=== PATIENT | female | born 1960 | race Caucasian/White ===

== ENCOUNTER → 2020-12-24 15:06 | Outpatient (CLI) | payer OTHER, SELFPAY ==
--- NOTE | 2020-12-24 | DI.MG.S_ITS ---
BILATERAL DIGITAL SCREENING MAMMOGRAM 3D/2D WITH CAD: 12/24/2020 CLINICAL: Routine screening. Family history of breast cancer. Comparison is made to exams dated: 06/14/2017 mammogram, 01/28/2016 mammogram, and 01/22/2015 mammogram - outside location. The tissue of both breasts is predominantly fatty. Current study was also evaluated with a Computer Aided Detection (CAD) system. No significant masses, calcifications, or other findings are seen in either breast. There has been no significant interval change. IMPRESSION: NEGATIVE There is no mammographic evidence of malignancy. A 1 year screening mammogram is recommended. This exam was interpreted at Station ID: [id number]. NOTE: For mammograms, a report in lay terms will be sent to the patient. Approximately 15% of breast malignancies will not be visualized mammographically. In the management of a palpable breast mass, a negative mammogram must not discourage biopsy of a clinically suspicious lesion. Electronically Signed By: Amando Acevedo acr/penrad:12/24/2020 16:22:13 letter sent: Normal Exam ACR BI-RADS Category 1: Negative [id number]
== END ==
PROVIDERS: Referring Provider Family Medicine; Visit Provider Family Medicine
DX: Z12.31 Encounter for screening mammogram for malignant neoplasm of breast (principal); Z80.3 Family history of malignant neoplasm of breast; Z78.0 Asymptomatic menopausal state; Z82.62 Family history of osteoporosis; Z90.722 Acquired absence of ovaries, bilateral
CPT/HCPCS: 77063; 77067; 77080

== ENCOUNTER → 2020-12-30 13:12 | Outpatient (CLI) | payer OTHER, SELFPAY ==
[2020-12-30 13:45] LABS: COVID19 -Nasal RAPID Negative (Negative)
== END ==
PROVIDERS: Visit Provider Surgery
DX: Z20.822 Contact with and (suspected) exposure to COVID-19 (principal); Z01.812 Encounter for preprocedural laboratory examination
CPT/HCPCS: 87635; C9803

== ENCOUNTER 2020-12-31 12:21 | Observation (INO) | payer OTHER, SELFPAY ==
[2020-12-30 13:26] VITALS: BMI 28.7
[2020-12-31] VITALS (18 sets, daily range): BP systolic 103–139; BP diastolic 58–85; PULSE 81–104; RESP 12–19; TEMP 36.2–37.3; O2SAT 93–99; BMI 27.9; BMI 28.3
--- NOTE | 2020-12-31 12:46 | PM.PREOP ---
Pre-operative Note Interval Note History & Physical reviewed/Exam performed by Physician: Yes Changes to H&P: No
[2020-12-31] MEDS: LACTATED RINGERS 1,000 ML 42 ML IV ×2 (12:52→16:11)
[2020-12-31] MEDS: CLINDAMYCIN 900 MG/50 ML PIGGYBACK 50 MG IV (14:37)
--- NOTE | 2020-12-31 14:44 | SUR.OPER ---
Lateral on padded OR bed, eddy bag positioner, bed slightly in jacknife position, break at hip, head on pillow, gel axillary roll in place, bottom leg bent with gel pad under knee to foot, upper leg straight and supported with pillows. Upper arm supported by pillows and secured over bottom arm to padded arm board. Safety belt at hip, tape over blanket lower legs.
[2020-12-31] MEDS: BUPIVACAINE 0.25% (PF) VIAL 30 ML INJ (15:01)
[2020-12-31] MEDS: OXYCODONE IR 5 MG TABLET PO ×2 (16:55→19:59)
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
[2020-12-31] MEDS: fentaNYL 100 MCG/2 ML INJ 50 MCG IV (17:13)
[2020-12-31] MEDS: HYDROMORPHONE 0.5 MG INJ IV (17:18)
[2020-12-31] MEDS: ACETAMINOPHEN 325 MG TABLET 650 MG PO (19:03)
[2020-12-31] MEDS: LACTATED RINGERS 1,000 ML 100 ML IV (19:51)
[2020-12-31] MEDS: GABAPENTIN 100 MG CAPSULE PO (20:02)
[2020-12-31] MEDS: methocarbamoL 500 MG TABLET 750 MG PO (20:02)
[2020-12-31] MEDS: DICLOFENAC 1% GEL 100 GM 1 APPLIC TOP (21:59)
[2021-01-01] MEDS: ACETAMINOPHEN 325 MG TABLET 650 MG PO ×3 (00:47→11:37)
[2021-01-01] MEDS: KETOROLAC 30 MG/ML VIAL IV ×2 (00:50→06:24)
[2021-01-01 04:00] VITALS: BP 108/67; PULSE 88; RESP 18; TEMP 36.2; O2SAT 96
[2021-01-01] MEDS: OXYCODONE IR 5 MG TABLET PO ×2 (04:27→09:37)
[2021-01-01] MEDS: LACTATED RINGERS 1,000 ML 100 ML IV (05:53)
[2021-01-01 06:00] VITALS: O2SAT 95
[2021-01-01] MEDS: PANTOPRAZOLE DR 20 MG TABLET PO (06:28)
[2021-01-01 07:57] VITALS: BP 102/59; PULSE 80; RESP 18; TEMP 37.1; O2SAT 99
[2021-01-01] MEDS: ENOXAPARIN 40 MG/0.4 ML SYRINGE SUBCUT (08:33)
[2021-01-01] MEDS: GABAPENTIN 100 MG CAPSULE PO (08:33)
[2021-01-01] MEDS: LIDOCAINE PATCH 1 EACH ADH..PATCH TOP (08:33)
[2021-01-01] MEDS: VENLAFAXINE ER 75 MG CAP 150 MG PO (08:33)
[2021-01-01 10:47] VITALS: O2SAT 97
--- NOTE | 2021-01-01 11:22 | CM.DANOTE ---
Discharge Planning/Care Management DCP: assessment: case received, dc order note and stopped in to see pt. Introduced self and role. She was found up independently in room, drain in place, spouse gathering her items in prep for home. RN Mercy confirmed that the d/c is in process with no concerns noted from his perspective. P: home. followup with Dr. Vieira. Payer: [facility] scheduled surgery. CM Discharge Assessment Start: 01/01/21 11:21 Freq: Status: Active Protocol: Document 01/01/21 11:22 ITV (Rec: 01/01/21 11:22 ITV [id number]) Discharge Planning Assessment Advance Directives? Yes Advance Directives on File No History Provided By Patient,Medical Record Household Members spouse,family,children Independent with ADL's Yes Is patient alert and oriented? Yes Discharge Plan Home Pre-Anesthesia Assessment Start: 12/30/20 13:25 Freq: Status: Active Protocol: Document 12/30/20 13:26 CAB (Rec: 12/30/20 13:35 CAB [id number]) Pre-Anesthesia Assessment Patient Information Reviewed Via Chart Review Comment COVID screen 12/30/20 Pending Primary Care Provider Nina Solis Primary Language [place] Criminal Investigator Customs Required No Height 152.4 cm Weight 66.678 kg Body Mass Index (BMI) 28.7 Visual Impairment Blind Comment Left eye blind Hx Anesthesia Reactions DONNA, treatment unknown Anesthesia Review Requested No Clinical Research Scientist No alcohol intake current Smoking Status Never smoker Pain Present Pain Reported Patient is completely paralyzed or No completely immobile Mental Status Oriented to own ability Is patient on oxygen? No Hx Sleep Apnea Yes: CPAP compliance unknown Currently Taking a Beta Candido No Hx Pacemaker/ICD No Pacemaker Rep Required? No Cardiac Clearance Received Not Applicable Gastrointestinal Symptoms Reflux Urinary Catheter Present No Hx Urinary Self Catheterization No Diabetes No Patient No Lactating No Marital Status Lives With spouse,family,children Patient Discharge Plan Description Return Home
--- NOTE | 2021-01-01 11:57 | PC.NURSE ---
Day shift: Pt off unit at approx 1200. Her spouse is driving her home. Dressing remains CDI and drain is patent and depressed. Instructed on drain care as well as wound care. Pt has all personal belonging. MD fermin went to Pt's pharmacy electronic. Taken to car in by RN student. Pt stated that she is happy to be going home today.
== END 2021-01-01 11:59 | disposition home or self-care (01) ==
LOC: OR 12:21 → AC 01-01 10:43
PROVIDERS: Admitting Provider Surgery; PCP Family Medicine; Referring Provider Surgery; Visit Provider Surgery
PROC: (CPT 49560; principal; 2020-12-31 12:15)
DX: K45.8 Other specified abdominal hernia without obstruction or gangrene (principal); R07.82 Intercostal pain; Z87.81 Personal history of (healed) traumatic fracture
CPT/HCPCS: 49560; 49568; C1781; G0378; J1100; J1170; J1650; J1885; J2405; J2704; J3010

== ENCOUNTER 2021-02-03 15:35 | Emergency (ER) | payer OTHER, SELFPAY ==
[2020-12-31 18:30] VITALS: BMI 28.3
[2021-02-03 15:37] VITALS: BP 149/78; PULSE 109; RESP 14; TEMP 36.4; O2SAT 98
--- NOTE | 2021-02-03 15:41 | DI.RAD.S_ITS ---
PROCEDURE: XR ANKLE RT MIN 3V INDICATIONS: fall TECHNIQUE: 3 views of the ankle were acquired. COMPARISON: None. FINDINGS: Bones: Fracture involving the base of the 5th metatarsal. Ankle mortise is normally aligned. No suspicious bony lesions. Small dorsal calcaneal bone spur. Soft tissues: No tibiotalar joint effusion. Achilles tendon appears normal. IMPRESSION: 5th metatarsal fracture. Dictated by: Abbie Klein MD, PhD on 02/03/2021 at 16:13 Approved by: Abbie Klein MD, PhD on 02/03/2021 at 16:15
--- NOTE | 2021-02-03 15:41 | DI.RAD.S_ITS ---
PROCEDURE: XR FOOT RT MIN 3V INDICATIONS: fall TECHNIQUE: 3 views of the foot were acquired. COMPARISON: None. FINDINGS: Bones: Displaced fracture of the base of the 5th metatarsal. Large dorsal calcaneal bone spur. Soft tissues: No tibiotalar joint effusion. Achilles tendon appears normal. IMPRESSION: 5th metatarsal fracture. Dictated by: Abbie Klein MD, PhD on 02/03/2021 at 16:12 Approved by: Abbie Klein MD, PhD on 02/03/2021 at 16:13
--- NOTE | 2021-02-03 15:42 | DI.RAD.S_ITS ---
PROCEDURE: XR FOREARM LT 2V INDICATIONS: fall TECHNIQUE: 2 views of the forearm were acquired. COMPARISON: None. FINDINGS: Bones: Lucency noted in the radial head which may represent a nondisplaced fracture. Recommend dedicated elbow series. No suspicious bony lesions. Soft tissues: No suspicious soft tissue calcifications or masses. IMPRESSION: Possible radial head fracture. Recommend dedicated left elbow x-ray series. Dictated by: Abbie Klein MD, PhD on 02/03/2021 at 16:11 Approved by: Abbie Klein MD, PhD on 02/03/2021 at 16:12
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
--- NOTE | 2021-02-03 17:54 | DI.RAD.S_ITS ---
PROCEDURE: XR ELBOW LT MIN 3V INDICATIONS: fall, abnormal forarm XR today TECHNIQUE: 3 views of the elbow were acquired. COMPARISON: [facility], DONTA, XR FOREARM LT 2V, 02/03/2021, 15:40. FINDINGS: Bones: Minimally displaced radial head fracture extending to the articular surface. Minimal impaction. Soft tissues: Mild joint effusion. No suspicious soft tissue calcifications. IMPRESSION: Minimally displaced intra-articular radial head fracture with effusion. Dictated by: Bella Mehta M.D. on 02/03/2021 at 18:27 Approved by: Bella Mehta M.D. on 02/03/2021 at 18:29
[2021-02-03] MEDS: OXYCODONE/ACETAMINOPHEN 5/325 TABLET 1 TAB PO (19:08)
[2021-02-03 19:34] VITALS: BP 142/90; PULSE 90; RESP 18; O2SAT 97
== END 2021-02-03 19:50 | disposition home or self-care (01) ==
PROVIDERS: Emergency Provider Emergency Medicine; PCP Family Medicine
DX: S52.125A Nondisplaced fracture of head of left radius, initial encounter for closed fracture (principal); S92.351A Displaced fracture of fifth metatarsal bone, right foot, initial encounter for closed fracture; W19.XXXA Unspecified fall, initial encounter
CPT/HCPCS: 73080; 73090; 73610; 73630; 99283; 99284

== ENCOUNTER 2021-02-14 17:14 | Emergency (ER) | payer OTHER, SELFPAY ==
[2020-12-31 18:30] VITALS: BMI 28.3
[2021-02-14 17:36] VITALS: BMI 28.1
[2021-02-14 17:45] VITALS: BP 143/92; PULSE 102; RESP 16; TEMP 36.6; O2SAT 98; BMI 28.1
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
[2021-02-14 21:20] VITALS: BP 138/77; PULSE 87; RESP 18; O2SAT 99
--- NOTE | 2021-02-14 21:30 | DI.CT.S_ITS ---
PROCEDURE: CT CHEST ABD PEL W CON INDICATIONS: fall with pain, impressive swelling of left chest and abdome TECHNIQUE: After the administration of intravenous contrast, 5 mm thick sections acquired from the lung apices to the symphysis. 2.5 mm thick coronal and sagittal reformats were acquired. Additional 7 mm thick coronal maximum intensity projection (MIP) reformats acquired through the lungs. Optional 10-minute delayed imaging may be performed from the kidneys to the bladder. For radiation dose reduction, the following was used: automated exposure control, adjustment of mA and/or kV according to patient size. COMPARISON: None. FINDINGS: Image quality: Excellent. CHEST: Lungs: No pulmonary contusions or lacerations. No acute airspace opacities. No pneumothorax or hemothorax. Central and peripheral airways appear patent and normal in caliber. Mediastinum: No mediastinal hematomas. Heart size is normal. No pericardial effusion. Thoracic aorta and pulmonary arteries demonstrate normal size and enhancement. There is a 40% origin left subclavian artery stenosis. No mediastinal or hilar adenopathy. Esophagus is normal in caliber. No hiatal hernia. Chest wall: No rib fractures. No subcutaneous emphysema. No axillary or supraclavicular adenopathy. Thyroid gland is unremarkable. Numerous old left-sided rib fractures, a number of them have been surgically fixed. No acute displaced rib fractures. ABDOMEN: Solid organs: Liver is normal in size and enhancement, without lacerations. There are multiple benign hepatic cysts. Gallbladder is. Biliary system is non-dilated. Pancreas enhances normally, without transection. Spleen is normal in size and enhancement, without lacerations. No adrenal hematomas. Both kidneys enhance normally, without hydronephrosis or lacerations. Peritoneum and bowel: No free fluid or air. Unenhanced bowel loops demonstrate normal wall thickness and caliber. Nodes and vessels: No retroperitoneal or mesenteric adenopathy. Aorta and inferior vena cava are normal in size and enhancement. Miscellaneous: No ventral hernias. PELVIS: Genitourinary: Bladder wall thickness is normal. Miscellaneous: No inguinal hernias or adenopathy. Uterus is surgically absent. Bones: Pelvic ring and hip joints appear intact. No vertebral compression fractures. IMPRESSION: 1. There are multiple old healed left rib fractures. 2. There are no significant sequelae acute trauma noted in the chest abdomen, and pelvis 3. 40% origin left subclavian artery stenosis. 4. Otherwise unremarkable CT chest. 5. No evidence of acute abdominal process. Comment: Final report is concordant with preliminary interpretation provided by [facility]. Dictated by: Frank Wilson M.D. on 02/15/2021 at 5:53 Approved by: Frank Wilson M.D. on 02/15/2021 at 5:59
--- NOTE | 2021-02-14 21:30 | DI.RAD.S_ITS ---
PROCEDURE: XR HUMERUS LT 2V INDICATIONS: fall with pain TECHNIQUE: 2 views of the humerus were acquired. COMPARISON: None. FINDINGS: Bones: No fractures or dislocations. No suspicious bony lesions. Soft tissues: No suspicious soft tissue calcifications. IMPRESSION: No evidence acute bony abnormality of the left humerus Dictated by: Frank Wilson M.D. on 02/14/2021 at 22:32 Approved by: Frank Wilson M.D. on 02/14/2021 at 22:32
[2021-02-14 21:53] LABS: Add Manual Diff / Slide Review NO; Basophils Absolute Auto 100 /uL (0-100); Basophils Percent Auto 0.9 % (0-2); Eosinophils Absolute Auto 0 /uL (0-450); Eosinophils Percent Auto 0.2 % (2-4); Hematocrit 42.9 % (36-46); Hemoglobin 14.4 g/dL (12.0-16.0); Lymphocytes Absolute Auto 3000 /uL (1100-4500); Mean Corpuscular HGB Conc 33.6 % (30-36); Mean Corpuscular Hemoglobin 28.6 PG (26-34); Mean Corpuscular Volume 85.1 fL (80-100); Monocytes Absolute Auto 500 /uL (0-900); Monocytes Percent Auto 6.6 % (3-14); Neutrophils Absolute Auto 4500 /uL (1500-7000); Neutrophils Percent Auto 55.3 % (50-75); Platelet Count 220 X10^3/uL (150-400); Red Blood Cell Count 5.03 X10^6/uL (4.0-5.2); Red Cell Distribution Width 13.9 % (11.6-14.8); White Blood Cell Count 8.1 X10^3/uL (4.5-11.0)
[2021-02-14 22:07] LABS: Alanine Aminotransferase 14 IU/L (<35); Albumin 4.9 g/dL (3.5-5.0); Albumin Globulin Ratio 1.6 (1.0-2.8); Alkaline Phosphatase 55 U/L (38-126); Aspartate Aminotransferase 23 IU/L (14-36); BUN Creatinine Ratio 28.8 (6-22); Bilirubin Total 0.4 mg/dL (0.2-1.3); Blood Urea Nitrogen 17 mg/dL (7-17); Calcium 9.9 mg/dL (8.4-10.2); Carbon Dioxide 30 mmol/L (22-32); Chloride 101 mmol/L (98-107); Estimated Glomerular Filt Rate > 60.0 mL/min (>60); Globulin 3.1 g/dL (1.7-4.1); Glucose 88 mg/dL (80-110); HEMOLYSIS < 15 (0-50); Potassium 3.9 mmol/L (3.4-5.1); Sodium 139 mmol/L (137-145)
[2021-02-14] MEDS: SODIUM CHLORIDE 0.9% 1,000 ML 125 ML IV (22:41)
[2021-02-14 22:44] VITALS: BP 133/74; PULSE 82; RESP 18; O2SAT 99
--- NOTE | 2021-02-14 22:48 | PC.NURSE ---
Swelling to left flank area.
--- NOTE | 2021-02-14 22:48 | PC.NURSE ---
Water given to spouse.
[2021-02-15 00:02] VITALS: BP 116/67; PULSE 78; RESP 17; O2SAT 98
== END 2021-02-15 00:06 | disposition home or self-care (01) ==
PROVIDERS: Emergency Provider Emergency Medicine; PCP Family Medicine
DX: S30.1XXA Contusion of abdominal wall, initial encounter (principal); W19.XXXA Unspecified fall, initial encounter
CPT/HCPCS: 36415; 71260; 73060; 74177; 80053; 85025; 96360; 99284; Q9967

== ENCOUNTER → 2021-10-10 11:30 | Outpatient (CLI) | payer OTHER, SELFPAY ==
[2020-12-31 18:30] VITALS: BMI 28.3
--- NOTE | 2021-10-10 | DI.MRI.S_ITS ---
PROCEDURE: MR CERVICAL SPINE WO CON INDICATIONS: PAIN IN CERVICAL AND THORACIC SPINE TECHNIQUE: Noncontrast sagittal T1 spin echo and T2 fast spin echo, sagittal STIR, foraminal oblique sagittal T2 fast spin echo, and axial gradient echo or T2 fast spin echo through the cervical spine. COMPARISON: None. FINDINGS: Image quality: Excellent. Alignment and Curvature: There is trace C3-C4 anterolisthesis. There is slight reversal normal cervical spine curvature. Bone Marrow: Mild Modic type 2 reactive endplate changes noted adjacent to the C4-C5, C5-C6 and C6-C7 discs. Spinal Cord: Visualized spinal cord has normal size and signal. No cerebellar tonsillar herniation. Paraspinous Soft Tissues: No paravertebral masses. Prevertebral soft tissues are normal in thickness. C2-C3: Loss of disc signal. No central stenosis. No neural foraminal narrowing. Mild bilateral facet hypertrophy. C3-C4: Loss of disc signal. Mild, diffuse disc bulge. Mild right and moderate left facet hypertrophy. Mild bilateral uncovertebral joint hypertrophy. Mild narrowing of the central canal. Mild bilateral neural foraminal narrowing. No neural compression. C4-C5: Loss of disc signal and height. Mild, diffuse disc bulge. Moderate-sized central/left central disc protrusion. Mild bilateral facet hypertrophy. Moderate right and mild left uncovertebral joint hypertrophy. Moderate to severe narrowing of the central canal with slight compression of the cervical spinal cord. Moderate right and mild left neural foraminal narrowing. C5-C6: Loss of disc signal and height. Moderate, diffuse disc bulge. Mild bilateral facet hypertrophy. Moderate bilateral uncovertebral joint hypertrophy. Severe narrowing of the central canal with mild compression of cervical spinal cord. Mild right and moderate left neural foraminal narrowing. C6-C7: Loss of disc signal and height. Mild to moderate diffuse disc bulge. Mild bilateral facet hypertrophy. Moderate right and mild left uncovertebral joint hypertrophy. Moderate narrowing of the central canal. Moderate right and mild left neural foraminal narrowing. No neural compression. C7-T1: Loss of disc signal. No central stenosis. No neural foraminal narrowing. No neural compression IMPRESSION: 1. Multilevel degenerative disc disease. 2. Multilevel facet and uncovertebral arthropathy. 3. Severe C5-C6 central canal narrowing with mild compression of the cervical spinal cord. Moderate to severe C4-C5 central canal narrowing with slight compression of the cervical spinal cord. 4. No severe neural foraminal narrowing. Dictated by: Abbie Klein MD, PhD on 10/12/2021 at 9:37 Approved by: Abbie Klein MD, PhD on 10/12/2021 at 9:44
--- NOTE | 2021-10-10 | DI.MRI.S_ITS ---
PROCEDURE: MR THORACIC SPINE WO CON INDICATIONS: PAIN IN CERVICAL AND THORACIC SPINE TECHNIQUE: Noncontrast sagittal T1 spine echo and T2 fast spin echo, sagittal STIR, axial T1 and T2 fast spin echo through the thoracic spine. COMPARISON: None. FINDINGS: Image quality: Excellent. Alignment and Curvature: There is normal bony alignment. Bone Marrow: Marrow is of normal overall signal. No acute vertebral body compression fractures. Spinal Cord: Visualized spinal cord is normal in size and signal. Paraspinous Soft Tissues: No paravertebral masses. Scattered areas of T2 signal are present within the left kidney most suggestive of simple cysts. In addition, T2 foci are present within the liver also suggestive of cysts. Miscellaneous: On axial images, central canal and foramina appear widely patent at all scanned levels. Scattered multilevel mild thoracic disc desiccation is present. There is a trace right posterior paracentral protrusion at T7-8. Otherwise, minimal scattered disc bulges are present. There is increased T2 signal identified within the exiting nerve roots in the foramina bilaterally at C7-T1, T7-8, T10-11. IMPRESSION: Scattered areas of disc desiccation and minimal bulges and protrusions as above without spinal stenosis. 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 Schwannomas cannot be definitively excluded and as clinically indicated, further evaluation with contrast study may be obtained. Dictated by: Bella Mehta M.D. on 10/12/2021 at 9:30 Approved by: Bella Mehta M.D. on 10/12/2021 at 9:34
== END ==
PROVIDERS: PCP Family Medicine; Referring Provider Family Medicine; Visit Provider Family Medicine
DX: M47.22 Other spondylosis with radiculopathy, cervical region (principal); M50.11 Cervical disc disorder with radiculopathy, high cervical region; M48.02 Spinal stenosis, cervical region; M54.6 Pain in thoracic spine; Z98.890 Other specified postprocedural states
CPT/HCPCS: 72141; 72146

== ENCOUNTER → 2021-11-16 17:09 | Outpatient (CLI) | payer OTHER, SELFPAY ==
[2020-12-31 18:30] VITALS: BMI 28.3
--- NOTE | 2021-11-16 | DI.MRI.S_ITS ---
PROCEDURE: MR LUMBAR SPINE WO CON INDICATIONS: Lumbar Pain TECHNIQUE: Noncontrast sagittal T1 spin echo and T2 fast echo, coronal T2, sagittal STIR, and T2 fast spin echo through the lumbar spine. COMPARISON: [facility], , CT THORAX/ABD/PELVIS W/O CONTRAST, 09/30/2020, 9:00. FINDINGS: Image quality: Excellent. Alignment and Curvature: 5 lumbar type vertebral bodies are present by CT. Mild diffuse leftward curvature of the mid/lower lumbar spine. Loss of normal lumbar lordosis. Mild grade 1 retrolisthesis of L2 on L3, L3 on L4, and L4 on L5. Bone Marrow: Marrow is of normal overall signal. No acute vertebral body compression fractures. Mild reactive signal throughout the endplates of the lumbar and lower thoracic spine. Spinal Cord: Conus medullaris terminates at the mid L1 level. Visualized cord demonstrates normal signal and size. Paraspinous Soft Tissues: No paravertebral masses. T12-L1: Mild disc height loss and desiccation. No significant canal, or foraminal stenosis. L1-L2: Mild disc height loss and desiccation. No significant canal, or foraminal stenosis. L2-L3: Mild disc height loss and desiccation. Mild diffuse disc bulge. Mild facet and ligamentum flavum hypertrophy. Mild canal stenosis. Mild bilateral foraminal stenosis. L3-L4: Moderate disc height loss and desiccation. Mild diffuse disc bulge/osteophyte. Mild bilateral facet and ligamentum flavum hypertrophy. Mild epidural lipomatosis. Mild canal stenosis. Moderate right and mild left foraminal stenosis. L4-L5: Moderate disc height loss and desiccation. Mild diffuse disc bulge. Mild facet and ligamentum flavum hypertrophy. Mild canal stenosis. Mild right and moderate left foraminal stenosis. L5-S1: Mild disc height loss. Moderate disc desiccation. Mild diffuse disc bulge. Moderate bilateral facet hypertrophy. Mild canal stenosis. Moderate to severe left and moderate right foraminal stenosis. Mild left L5 nerve root compression. IMPRESSION: 1. Multilevel degenerative disc and facet disease, as well as ligamentum flavum hypertrophy and epidural lipomatosis. 2. Mild multilevel canal stenoses. 3. Multilevel foraminal stenoses, worst at L5-S1 where there is associated intraforaminal nerve root compression. Recommend correlation with clinical symptoms to ascertain relevance of this finding. Dictated by: Irvin Robins M.D. on 11/17/2021 at 8:27 Approved by: Irvin Robins M.D. on 11/17/2021 at 8:31
--- NOTE | 2021-11-16 | DI.MRI.S_ITS ---
PROCEDURE: MR THORACIC SPINE W CON INDICATIONS: thoracic pain TECHNIQUE: Noncontrast sagittal T1 spin echo and T2 fast spin echo, sagittal STIR, axial T1 and T2 fast spin echo through the thoracic spine. After the administration of contrast, axial and sagittal T1 spin echo with fat saturation through the thoracic spine. COMPARISON: [facility], MR, MR THORACIC SPINE WO CON, 10/10/2021, 12:02. FINDINGS: Image quality: Excellent. Alignment and curvature: There is normal bony alignment. Marrow: Marrow is of normal overall signal. No acute vertebral body compression fractures. Spinal cord: Visualized spinal cord is of normal signal and size, without abnormal enhancement. Paraspinous soft tissues: No paravertebral masses or abnormal enhancement. Simple cysts in the kidney and liver are again identified with no enhancement. Miscellaneous: Central canal and foramina appear widely patent at all scanned levels. No enhancing foci within the foramina to suggest schwannomas. Given the lack of enhancement, the previously described foci of increased T2 signal within multiple levels of the exiting nerve roots are consistent with nerve root sleeves. IMPRESSION: Multilevel benign nerve root sleeve cysts. No abnormal enhancement to suggest schwannomas. Dictated by: Amando Acevedo M.D. on 11/17/2021 at 8:25 Approved by: Amando Acevedo M.D. on 11/17/2021 at 8:30
== END ==
PROVIDERS: PCP Family Medicine; Referring Provider Family Medicine; Visit Provider Family Medicine
DX: M51.16 Intervertebral disc disorders with radiculopathy, lumbar region (principal); M51.17 Intervertebral disc disorders with radiculopathy, lumbosacral region; M48.061 Spinal stenosis, lumbar region without neurogenic claudication; M48.07 Spinal stenosis, lumbosacral region; G96.191 Perineural cyst; R93.89 Abnormal findings on diagnostic imaging of other specified body structures; M54.50 Low back pain, unspecified; R32 Unspecified urinary incontinence; Z98.890 Other specified postprocedural states
CPT/HCPCS: 72147; 72148; A9579

== ENCOUNTER → 2023-01-08 12:09 | Outpatient (CLI) | payer OTHER, SELFPAY ==
[2020-12-31 18:30] VITALS: BMI 28.3
--- NOTE | 2023-01-08 12:12 | DI.MRI.S_ITS ---
PROCEDURE: MR HEAD/BRAIN WO CON INDICATIONS: Postconcussional syndrome TECHNIQUE: Non-contrast axial T1 spin echo, axial T2 fast spin echo, sagittal and axial FLAIR, coronal T2 fast spin echo, axial gradient echo, axial diffusion and ADC through the brain. COMPARISON: None. FINDINGS: Image quality: Excellent. CSF spaces: Ventricles appear symmetric in size and shape. Basal cisterns are patent. No extra-axial fluid collections. Brain: No intracranial bleeds or mass effects. There is cerebral volume loss for age. There are periventricular and deep white matter chronic small vessel ischemic changes. Brainstem appears normal. Diffusion-weighted images show no acute ischemic insults. No chronic ischemic insults. Normal intravascular flow voids are present. Skull and face: Calvarial bone marrow is normal in signal. There is a left posterior globe mass measuring 12 mm diameter. Patient appears to be status post left-sided scleral banding. Sinuses: Sinuses and mastoids are clear. IMPRESSION: 1. No acute intracranial abnormality. No recent infarct. 2. Postsurgical sequelae involving the left globe. 3. Indeterminate left posterior globe mass measuring 12 mm, possibly representing postsurgical sequelae. Ophthalmological consultation recommended. 4. Mild volume loss and small vessel ischemic disease. Dictated by: Irvin Robins M.D. on 01/11/2023 at 8:58 Approved by: Irvin Robins M.D. on 01/11/2023 at 9:01
== END ==
PROVIDERS: PCP Family Medicine; Referring Provider Preventive Medicine Occupational Medicine; Visit Provider Preventive Medicine Occupational Medicine
DX: F07.81 Postconcussional syndrome (principal); I67.9 Cerebrovascular disease, unspecified
CPT/HCPCS: 70551

== ENCOUNTER → 2023-01-28 13:49 | Outpatient (CLI) | payer OTHER, SELFPAY ==
[2020-12-31 18:30] VITALS: BMI 28.3
--- NOTE | 2023-01-28 | DI.CT.S_ITS ---
PROCEDURE: CT CHEST ABD PEL WO CON INDICATIONS: Other specified abdominal hernia TECHNIQUE: After the administration of oral contrast, 5 mm thick sections acquired from the lung apices to the symphysis pubis. 5 mm thick coronal and sagittal reformats acquired, with additional 7 mm coronal MIP reformats through the lungs. For radiation dose reduction, the following was used: automated exposure control, adjustment of mA and/or kV according to patient size. COMPARISON: [facility], CT, CT CHEST ABD PEL W CON, 02/14/2021, 21:39. FINDINGS: Image quality: Excellent. CHEST: Lungs and pleura: No acute pulmonary opacities. No pleural effusions or pneumothorax. Central and peripheral airways are patent are normal in caliber. Mediastinum: Heart size is normal. No pericardial effusion. No mediastinal adenopathy by CT size criteria. Thoracic aorta and central pulmonary arteries are normal in size. Esophagus is normal in caliber. Small hiatal hernia. Chest wall: There are multiple left rib fractures involving the 5th, 6th, 7th, 8th and 9th ribs. There are internal fixation at 7, 8th, 9th ribs. There is a large left flank hernia on the left between 9th and 10th ribs, containing omental fat. The size of the aneurysm is not significant changed from 02/14/2021. No axillary or supraclavicular adenopathy by size criteria. Thyroid gland is unremarkable. ABDOMEN: Solid organs: Liver is normal in size. There are a few hepatic cysts. Gallbladder is normal. Pancreas is normal in contours. Spleen is normal in size. No adrenal nodules. Both kidneys are normal in size, without hydronephrosis or nephrolithiasis. Peritoneum and bowel: There is gastric wall thickening. Small and large bowel loops are normal in caliber and wall thickness. No free fluid or air. Nodes and vessels: No retroperitoneal or mesenteric adenopathy by size criteria. Aorta and inferior vena cava are normal in size. There is a 0.8 cm splenic artery aneurysm at the scanning hilum. Miscellaneous: There is a large left flank hernia on the left between 9th and 10th ribs, containing omental fat. PELVIS: Genitourinary: Bladder wall thickness is normal. Miscellaneous: No inguinal hernias or adenopathy. Bones: Levoscoliosis. No suspicious bony lesions. No vertebral body compression fractures. IMPRESSION: 1. Large left flank hernia between the left 9th and 10th ribs with omental fat herniating into the hernia sac. No findings to suggest strangulation. 2. The gastric wall thickening suspicious for gastritis. Recommend clinical correlation. 3. A 0.8 cm splenic artery aneurysm. 4. Multiple hepatic cysts. Dictated by: Stephanie Sevilla M.D. on 01/28/2023 at 16:01 Approved by: Stephanie Sevilla M.D. on 01/28/2023 at 18:29
== END ==
PROVIDERS: PCP Family Medicine; Referring Provider Preventive Medicine Occupational Medicine; Visit Provider Preventive Medicine Occupational Medicine
DX: K45.8 Other specified abdominal hernia without obstruction or gangrene (principal); K76.89 Other specified diseases of liver; I72.8 Aneurysm of other specified arteries
CPT/HCPCS: 71250; 74176

== ENCOUNTER → 2024-08-02 16:14 | Outpatient (CLI) | payer MEDICARE, OTHER, SELFPAY ==
[2023-03-17 10:12] VITALS: BMI 28.3
--- NOTE | 2024-08-02 | DI.MG.S_ITS ---
BILATERAL DIGITAL SCREENING MAMMOGRAM 3D/2D WITH CAD: 08/02/2024 CLINICAL: Routine screening. Family history of breast cancer. Comparison is made to exams dated: 12/24/2020 mammogram - [facility], 06/14/2017 mammogram - outside location, and 05/17/2022 mammogram - out side. The breasts are heterogeneously dense, which may obscure small masses (category c / 51-75% glandular tissue). Current study was also evaluated with a Computer Aided Detection (CAD) system. No significant masses, calcifications, or other findings are seen in either breast. There has been no significant interval change. IMPRESSION: NEGATIVE There is no mammographic evidence of malignancy. A 1 year screening mammogram is recommended. Based on the Tyrer Cuzick model (a risk assessment model) the patient's lifetime risk is 5.2% and her 10 year risk is 2.5%. According to the ACR, ACS, and NCCN guidelines, an annual breast MRI exam along with mammogram is recommended if the patient's lifetime risk is 20% or greater. This exam was interpreted at Station ID: [id number]. NOTE: For mammograms, a report in lay terms will be sent to the patient. Approximately 15% of breast malignancies will not be visualized mammographically. In the management of a palpable breast mass, a negative mammogram must not discourage biopsy of a clinically suspicious lesion. Electronically Signed By: Eitan hall/sonam:08/04/2024 08:49:40 letter sent: Normal Exam ACR BI-RADS Category 1: Negative
== END ==
PROVIDERS: PCP Internal Medicine; Referring Provider Internal Medicine; Visit Provider Internal Medicine
DX: Z12.31 Encounter for screening mammogram for malignant neoplasm of breast (principal); Z80.3 Family history of malignant neoplasm of breast; R92.333 Mammographic heterogeneous density, bilateral breasts
CPT/HCPCS: 77063; 77067